=== PATIENT | female | born 1975 | race Caucasian/White ===

== ENCOUNTER 2021-02-03 15:11 | Emergency (ER) | payer OTHER ==
[2021-02-03 15:42] LABS: HEMOGLOBIN 15.5 gm/dl (12.3-15.3); RED BLOOD COUNT 4.89 M/UL (4.00-5.10); WHITE BLOOD COUNT 8.2 K/UL (4.5-11.0)
[2021-02-03 16:05] LABS: BUN/CREATININE RATIO 15 (0-10)
== END 2021-02-03 18:06 | disposition home or self-care (01) ==
LOC: ER1 15:11
PROVIDERS: Family Medicine
DX: R07.89 Other chest pain (principal); K21.9 Gastro-esophageal reflux disease without esophagitis; Z90.710 Acquired absence of both cervix and uterus; Z90.49 Acquired absence of other specified parts of digestive tract; Z88.6 Allergy status to analgesic agent; Z79.899 Other long term (current) drug therapy; Z88.2 Allergy status to sulfonamides; Z88.5 Allergy status to narcotic agent
CPT/HCPCS: 71045; 80048; 82550; 82553; 83874; 84484; 85025; 85379; 93005; 99285